=== PATIENT | female | born 1995 | race Caucasian/White ===

== ENCOUNTER 2020-11-07 13:41 | Outpatient (CLI) | payer OTHER, SELFPAY ==
[2020-11-07 15:12] LABS: Alanine Aminotransferase 17 U/L (4-35); Albumin Level 4.5 g/dL (3.5-5.1); Alkaline Phosphatase 73 U/L (38-126); Anion Gap 9 mmol/L (8-16); Aspartate Amino Transferase 30 U/L (14-36); Bilirubin,Total 0.4 mg/dL (0.2-1.3); Blood Urea Nitrogen 11 mg/dL (7-17); Calcium 9.3 mg/dL (8.4-10.2); Carbon Dioxide 27 mmol/L (22-30); Chloride 101 mmol/L (98-107); Cholesterol 171 mg/dL (0-200); Estimated Glomerular Filt Rate > 60; Glucose 149 mg/dL (65-105); HDL Direct 58 mg/dL; Potassium 3.9 mmol/L (3.4-5.0); Sodium 137 mmol/L (137-145); Triglycerides 102 mg/dL (<150)
[2020-11-07 15:24] LABS: LDL Cholesterol Direct 77 mg/dL
[2020-11-07 16:00] LABS: Creatinine Urine 105.8 mg/dL
[2020-11-07 17:01] LABS: Hemoglobin A1C 7.5 % (<5.7)
[2020-11-07 17:06] LABS: Microalbumin Urine Random < 6.0 mg/L (0-16.7)
[2020-11-07 17:07] LABS: MALB Creatinine Ratio < 5.7 mg/g (0-30)
== END 2020-11-07 13:42 | disposition home or self-care (01) ==
DX: E10.65 Type 1 diabetes mellitus with hyperglycemia (principal)
CPT/HCPCS: 36415; 80053; 80061; 82043; 83036; 84443

== ENCOUNTER 2021-12-02 16:43 | Emergency (ER) | payer OTHER, SELFPAY ==
[2021-12-02 17:05] VITALS: BP 113/80; PULSE 92; RESP 18; TEMP 37.2; O2SAT 100
--- NOTE | 2021-12-02 17:12 | ED.URI ---
HPI - URI/Sore Throat General Chief Complaint: Upper Respiratory Infection Stated Complaint: sorethroat,cough Time Seen by Provider: 12/02/21 17:13 Source: patient Mode of arrival: ambulatory Limitations: no limitations History of Present Illness HPI Narrative: Ms. Vo is a 26-year-old female patient presenting to the clinic today with complaints of sore throat, nonproductive cough, headache, chills, and congestion x3 days. She reports no known COVID exposure. She denies any known fever. Reports she did a COVID test yesterday and it was negative at that time. MD elicited complaint: sore throat and nasal congestion Related Data Home Medications Medication Instructions Recorded Confirmed insulin lispro 100 unit/mL 100 unit DIRECTED 12/02/21 12/02/21 subcutaneous solution vits 75-iron 28 mg-folic 1 pkg PO DAILY 12/02/21 12/02/21 acid 800 mcg-omega3 440 mg oral pack Allergies Allergy/AdvReac Type Severity Reaction Status Date / Time Penicillins Allergy Unknown Verified 12/02/21 17:30 Review of Systems Review of Systems: Pertinent positives per HPI. Patient denies any fever, rash, visual changes, dizziness, shortness of breath, chest pain, palpitations, nausea, vomiting, diarrhea, constipation, abdominal pain, or any urinary issues. PMFSH Comments At the time of my signature, I reviewed and agree with the nursing past medical, surgical, social, and family history. There is no relevant family history pertinent to the patient complaint. Exam Narrative: General: Well-developed, well nourished, in no apparent distress Head: Normocephalic, atraumatic Eyes: Pupils equally round and reactive to light bilaterally, EOM intact, sclera and conjunctive clear, no discharge, lids normal Ears: TMs intact and clear, ear canals ceruminous, no drainage, grossly hearing normal. Nose: Nares patent, no discharge, no inflammation, no sinus tenderness. Mouth: Oral pharynx without lesions or masses, good dentition, MMM. Postnasal drip Neck: Supple, trachea midline, no enlargement of anterior or posterior cervical nodes, no thyroid masses or goiter palpable. Cardio: Regular rate and rhythm, s1 and s2 normal, no murmur appreciated. Resp: Clear to auscultation bilaterally, no rhonchi, rales, wheezing or rubs Course Course Emergency Course: Portions of this record may have been created with voice recognition software. Level of Care: Express Care Visit Vital Signs Vital signs: Vital Signs Temperature 37.2 C 12/02/21 17:05 Pulse Rate 92 12/02/21 17:05 Respiratory Rate 18 12/02/21 17:05 Blood Pressure 113/80 12/02/21 17:05 Pulse Oximetry 100 12/02/21 17:05 Oxygen Delivery Room Air 12/02/21 17:05 Temperature 37.2 C 12/02/21 17:05 Pulse Rate 92 12/02/21 17:05 Respiratory Rate 18 12/02/21 17:05 Blood Pressure 113/80 12/02/21 17:05 Pulse Oximetry 100 12/02/21 17:05 Oxygen Delivery Room Air 12/02/21 17:05 Vital signs reviewed MDM - URI/Sore Throat MDM Narrative Medical decision making narrative: At the time of visit patient is resting comfortably on the exam table. COVID and strep test was completed and was negative in the clinic. Offered PCR COVID testing and patient declined at this time. I suspect patient has viral syndrome, upper respiratory infection, and postnasal drip. Supportive measures were discussed with the patient she voiced understanding of discharge instructions and agrees to the treatment plan Differential Diagnosis Differential diagnosis: Likely upper respiratory infection, sinusitis, viral infection, bronchitis, influenza, pharyngitis and other (COVID) Discharge Plan Discharge Clinical Impression: Post-nasal drip, Viral syndrome Upper respiratory infection Qualifiers: URI type: unspecified viral URI Qualified Code(s): J06.9 - Acute upper respiratory infection, unspecified Patient Disposition: Home, Self-Care Condition: Stable
== END 2021-12-02 17:55 | disposition home or self-care (01) ==
PROVIDERS: Emergency Provider Nurse Practitioner Family
DX: R09.82 Postnasal drip (principal); B34.9 Viral infection, unspecified; J06.9 Acute upper respiratory infection, unspecified; Z20.822 Contact with and (suspected) exposure to COVID-19; E10.9 Type 1 diabetes mellitus without complications
CPT/HCPCS: 87081; 87426; 87880; 99213; C9803; G0463

== ENCOUNTER 2022-07-05 10:59 | Outpatient (CLI) | payer OTHER, SELFPAY ==
[2022-07-05 12:08] LABS: Basophils Percent Auto 0.5 % (0.2-1.2); Eosinophils Absolute Auto 0.1 K/mm3 (0-0.3); Hematocrit 41.8 % (37.0-47.0); Hemoglobin 13.9 g/dL (12.0-15.0); Immature Granulocyte Absolute 0.01 K/mm3 (0.00-0.031); Immature Granulocyte Percent A 0.2 % (0-0.5); Lymphocytes Absolute Auto 2.54 K/mm3 (0.9-3.2); Lymphocytes Percent Auto 41.4 % (18.3-44.2); Mean Corpuscular HGB Conc 33.3 g/dl (32-36); Mean Corpuscular Hemoglobin 29.4 pg (26-34); Mean Corpuscular Volume 88.4 fl (80-100); Mean Platelet Volume 11.1 fl (7.4-10.4); Monocytes Absolute Auto 0.4 K/mm3 (0.1-0.6); Monocytes Percent Auto 6.4 % (2.6-8.5); Neutrophils Percent Auto 49.5 % (45.5-73.1); Platelet Count Result 212 k/mm3 (150-375); Red Blood Count 4.73 M/mm3 (4.2-5.4); Red Cell Distribution Width 12.7 % (11.5-14.5); White Blood Count 6.1 K/mm3 (4.5-10.0)
[2022-07-05 12:20] LABS: Alanine Aminotransferase 26 U/L (6-35); Albumin Level 4.6 g/dL (3.5-5.1); Alkaline Phosphatase 87 U/L (38-126); Anion Gap 7 mmol/L (8-16); Aspartate Amino Transferase 26 U/L (14-36); Bilirubin,Total 0.7 mg/dL (0.2-1.3); Blood Urea Nitrogen 13 mg/dL (7-17); Calcium 8.9 mg/dL (8.4-10.2); Carbon Dioxide 26 mmol/L (22-30); Chloride 103 mmol/L (98-107); Cholesterol 184 mg/dL (0-200); Estimated Glomerular Filt Rate > 60; Glucose 350 mg/dL (65-110); HDL Direct 50 mg/dL; Sodium 136 mmol/L (137-145); Triglycerides 95 mg/dL (<150)
[2022-07-05 12:31] LABS: LDL Cholesterol Direct 105 mg/dL
[2022-07-05 13:17] LABS: Creatinine Urine 52.9 mg/dL
[2022-07-05 13:44] LABS: MALB Creatinine Ratio < 11.3 mg/g (0-30); Microalbumin Urine Random < 6.0 mg/L (0-16.7)
== END 2022-07-05 11:00 | disposition home or self-care (01) ==
LOC: ANHLAB 10:59
DX: E10.8 Type 1 diabetes mellitus with unspecified complications (principal)
CPT/HCPCS: 36415; 80053; 80061; 82043; 84443; 85025

== ENCOUNTER 2023-10-05 10:17 | Emergency (ER) | payer OTHER, SELFPAY ==
--- NOTE | 2023-10-05 10:19 | ED.FEMALEGU ---
HPI - Female Genitourinary General Chief complaint: Urogenital-Female Stated complaint: verification Time Seen by Provider: 10/05/23 10:19 Source: patient Mode of arrival: ambulatory Limitations: no limitations History of Present Illness HPI Narrative: Molly is a 28-year-old female presenting to the clinic today with request for a bedside test for verification so she can be seen over at [facility] in [place]. Last menstrual period was August 19, 2023. Patient is a type 1 diabetic. This makes her G2-P1. Denies any abdominal pain, vaginal bleeding, or vaginal discharge. Denies any other concerns at this time Related Data Home Medications Medication Instructions Recorded Confirmed insulin lispro 100 unit/mL 100 unit DIRECTED 12/02/21 10/24/22 subcutaneous solution vits 75-iron 28 mg-folic 1 pkg PO DAILY 12/02/21 10/24/22 acid 800 mcg-omega3 440 mg oral pack Allergies Allergy/AdvReac Type Severity Reaction Status Date / Time Penicillins Allergy Rash Verified 10/05/23 10:34 Review of Systems Review of Systems: Pertinent positives per HPI. Patient denies any fever, chills, rash, headache, visual changes, dizziness, cough, runny nose, sore throat, shortness of breath, chest pain, palpitations, nausea, vomiting, diarrhea, constipation, abdominal pain, or any urinary issues. [facility] Past Medical History Medical History No pertinent family history Type 1 diabetes Surgical History Surgical History History of 2019 History of wisdom tooth extraction Family History Family History Mother No problems noted. Father No problems noted. Social History Social History Smoking status: Never smoker Alcohol intake: never Substance use: never Substance use type: does not use Lack of Transportation: No Lack of Food: Never True Current Housing: I Have Housing Concerned About Future Housing: No Difficulty Paying Gas/Electric Bills: No Difficulty Paying for Meds: No Currently Unemployed: No Difficulty w/ Childcare or Family Care: No Living arrangements: with family Occupation/Education: occupation Gender identity (if verbalized by the patient): Female Sexual Orientation (if Verbalized by the Patient): Straight or Heterosexual Comments At the time of my signature, I reviewed and agree with the nursing past medical, surgical, social, and family history. There is no relevant family history pertinent to the patient complaint. Exam Narrative: General: Well-developed, well nourished, in no apparent distress. Head: Normocephalic, atraumatic. Cardio: Regular rate and rhythm, s1 and s2 normal, no murmur appreciated. Resp: Clear to auscultation bilaterally, no rhonchi, rales, wheezing or rubs. Abdomen: Soft, pliable, bowel sounds present in all quadrants, non-tender to palpation, no organomegly, no CVAT tenderness. : Deferred Course Course Emergency Course: Portions of this record may have been created with voice recognition software. Level of Care: Express Care Visit Vital Signs Vital signs: Vital signs reviewed MDM - Female Genitourinary MDM Narrative Medical decision making narrative: At the time of visit patient is resting comfortably on the exam table. Patient appears to be nontoxic. Labs: Bedside test was positive in the clinic today. Plan: Patient has confirmed positive urine test. Follow-up with OBGYN. Supportive measures were discussed with the patient and they voiced understanding discharge instructions and agrees to treatment plan. Return precautions reviewed Differential Diagnosis Differential diagnosis: Likely ot
[2023-10-05 10:25] VITALS: BP 107/62; PULSE 68; RESP 18; TEMP 36.9; O2SAT 100
== END 2023-10-05 11:00 | disposition home or self-care (01) ==
PROVIDERS: Emergency Provider Nurse Practitioner Family; PCP Physician Assistant Medical
DX: Z32.01 Encounter for pregnancy test, result positive (principal); E10.9 Type 1 diabetes mellitus without complications
CPT/HCPCS: 81025; 99212; G0463